=== PATIENT | male | born 1990 | race Two or more races ===

== ENCOUNTER 2016-05-14 13:47 | Emergency (ER) | payer OTHER ==
[~2016-05-14] VITALS: Ht 190.5 cm; Wt 85.4 kg
[2016-05-14] MEDS ORDERED: PEN-VEE K,VEET500 MG PO (16:29)
[2016-05-14] MEDS ORDERED: NORCO 5/3251 TABLET PO (16:30)
[2016-05-14 16:45] VITALS: BP 145/84
== END 2016-05-14 16:45 | disposition home or self-care (01) ==
LOC: EME 13:47
DX: K02.9 Dental caries, unspecified (principal); R51 Headache; R43.2 Parageusia
CPT/HCPCS: 99281; 99283

== ENCOUNTER 2016-09-23 15:52 | Emergency (ER) | payer OTHER ==
[~2016-09-23] VITALS: Ht 190.5 cm; Wt 86.8 kg
[~2016-09-23 15:52] MED LIST: NORCO 5/3251 TABLET PO; PEN-VEE K,VEET500 MG PO
[2016-09-23 16:02] VITALS: BP 136/87
== END 2016-09-23 19:06 | disposition left against medical advice (07) ==
LOC: EME 15:52
DX: S99.921A Unspecified injury of right foot, initial encounter (principal); X58.XXXA Exposure to other specified factors, initial encounter; Z53.21 Procedure and treatment not carried out due to patient leaving prior to being seen by health care provider